=== PATIENT | female | born 1990 | race Caucasian/White ===

== ENCOUNTER 2016-05-23 11:21 | Outpatient (CLI) | payer OTHER ==
[~2016-05-23 11:21] MED LIST: ALBUTEROL HFA60 DOSE IN; INDERAL EQUIVAL20 MG PO; LEVOTHYROXINE112 MCG PO; LUNESTA1 MG PO; XANAX0.25 MG PO; trintellix PO
== END 2016-05-23 23:00 ==
LOC: LAB SRH 11:21
DX: N93.9 Abnormal uterine and vaginal bleeding, unspecified (principal)
CPT/HCPCS: 90001; 90047; 90074; 90155; 90364; 91004; 92863; 95059; 98428

== ENCOUNTER 2016-05-25 05:44 | Day surgery (SDC) | payer OTHER ==
--- NOTE | 2016-05-20 20:00 | HISTORY AND PHYSICAL ---
ADMITTED: 05/25/2016 CHIEF COMPLAINT: 1. Pelvic pain 2. Abnormal endometrium HISTORY OF PRESENT ILLNESS: This patient was seen for her annual on 04/01/2016. She reported at that time that she had her last Depo-Provera the previous March and had chosen not to have more because of a 45 pound weight gain while using that method. Her period started in 08/2015, but were irregular. At the time of her annual she had been bleeding for 5 weeks with varied flow, sometimes heavy, requiring a change of pad and tampon every 1 hour for up to 3 weeks. She had a history of a thickened endometrium in 2011. She also complained of fatigue. An ultrasound was done 04/14/2016 measuring the uterus at 7.9 cm, anteverted. The myometrium contained multiple cystic and hypoechoic areas within the endometrium, by the endometrial borders, that they felt could represent adenomyosis. The endometrium itself measured 11.9 mm, both ovaries were normal. Options for further evaluation of her pain and the abnormal endometrium were discussed with her. She has chosen to schedule for a hysteroscopy, D&C to evaluate the endometrium and see if that helps with the pain. She does not want to have a diagnostic laparoscopy at this point, but may consider it in the future if she continues to have pain. Other options were discussed with her as well, along with the risks and benefits of each choice. Surgical risks have been reviewed with her including infection, bleeding , damage to her structures, anesthesia, and the possibility of further surgery at the time or in the future. Informed consent has been signed. MEDICAL/SURGICAL HISTORY: Menstrual history: Includes menarche at age 13, LMP and ongoing currently. Obstetrical history: Includes 2 vaginal deliveries in 2010 and 2012. Past surgical history: Hysteroscopy, D&C, polypectomy in 2013. 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 MEDICATIONS: 1. Brintellix 20 mg daily for depression. 2. Levothyroxine 112 mcg daily. 3. Lunesta 2 mg at bedtime. 4. Propranolol 10 mg p.r.n. anxiety. 5. Alprazolam ER 1 mg daily. 6. Albuterol inhaler p.r.n. use. ALLERGIES: 1. MORPHINE. 2. LAMICTAL. SOCIAL HISTORY: She is , G2, P2. Denies tobacco and drug use. Reports occasional alcohol intake. FAMILY HISTORY: Her parents and siblings are alive. Her brother, father, and paternal grandfather have hypertension. Her father and paternal grandmother have diabetes. Her maternal great aunt had cancer. REVIEW OF SYSTEMS: She denies headache, ear pain, throat pain, chest pain, shortness of breath, digestive disorders and joint and extremity problems. PHYSICAL EXAMINATION: VITAL SIGNS: She is 5 foot 4 inches, weighs 222. Blood pressure 110/70, pulse 72 , temperature 97.7. GENERAL: She is an overweight female, alert and oriented. HEENT: Within normal limits. HEART: Normal. LUNGS: Normal. ABDOMEN: Full, soft. EXTREMITIES: No clubbing, cyanosis, or edema. IMPRESSION: 1. Abnormal uterine bleeding. 2. Pelvic pain. PLAN: Hysteroscopy, dilatation and curettage, scheduled for 05/25/2016. Informed consent has been signed.
--- NOTE | 2016-05-25 06:39 | NUR ---
PRE OP INSTRUCTIONS GIVEN AND SAFETY ISSUES DISCUSSED PT AND S/O HAD QUESTIONS ANSWERED PT CONFIRMED PROCEDURE PT VERIFIED SIGNATURE
--- NOTE | 2016-05-25 08:59 | NUR ---
PT RECEIVED TO PACU SEDATED, NOT YET RESPONDING TO VOICE. LMA IN PLACE. PT TACHYCARDIC ON ARRIVAL AND ANESTHESIA PROVIDER IS AWARE. LMA REMOVED AT 0849. PT AROUSABLE TO VOICE. VSS, BUT HR REMAINS HIGH, RATE DECREASING SLOWLY. GIVING FLUID BOLUS.
[2016-05-25] MEDS ORDERED: IBUPROFEN400 MG PO (09:03)
[2016-05-25] MEDS ORDERED: VICODIN EQUIVAL1 TAB PO (09:03)
--- NOTE | 2016-05-25 09:05 | Provider's Discharge Care Plan ---
Problem, Goal, Plan Problem List 1. Post-op pain Goals: Improve function Instructions: Follow up as directed
--- NOTE | 2016-05-25 09:05 | Provider's Discharge Care Plan ---
Problem, Goal, Plan Problem List 1. Post-op pain Goals: Improve function Instructions: Follow up as directed
--- NOTE | 2016-05-25 09:14 | NUR ---
PT REMAINS SEDATED, BUT AROUSABLE TO VOICE. HR 105-115 AFTER FLUID BOLUS. VSS.
--- NOTE | 2016-05-25 09:34 | NUR ---
PT MORE EASILY AROUSABLE NOW AND CONVERSING. PAIN LEVEL RATED 2-3/10 AFTER FENTANYL 25 MCG IV AND TORADOL IV. NO NAUSEA.
--- NOTE | 2016-05-25 09:47 | NUR ---
PT AWAKE AND COMFORTABLE. DR EVANS SPOKE WITH PT IN PACU REGARDING SURGICAL FINDINGS AND FOLLOW-UP CARE. QUESTIONS ANSWERED. VSS.
--- NOTE | 2016-05-25 09:55 | OPERATIVE REPORT ---
DATE OF SURGERY: 05/25/2016 SURGEON: Matilda Mccabe DO PREOPERATIVE DIAGNOSES: 1. Abnormal uterine bleeding 2. Pelvic pain POSTOPERATIVE DIAGNOSES: 1. Abnormal uterine bleeding 2. Pelvic pain 3. Polyps PROCEDURES PERFORMED: 1. Hysterectomy 2. Dilatation and curettage 3. Polypectomy ANESTHESIA: LMA. COMPLICATIONS: None. CONDITION: Stable. ESTIMATED BLOOD LOSS: Minimal. FLUIDS: 500 mL of lactated Ringer. Blood administered: None. DRAINS: 0. URINE OUTPUT: 25 mL preoperatively. PATHOLOGY SPECIMEN: Endometrial polyps, endocervical curettings, endometrial curettings. IMPLANTS/GRAFTS: None. SURGICAL FINDINGS: Uterus sounded to 10 cm, retroverted. Polyps in the endometrial cavity removed with polyp forceps. SURGICAL TECHNIQUE: The patient was taken to the operating room where her anesthesia was obtained. She was prepped and draped in the normal sterile fashion in the lithotomy position. A pelvic exam under anesthesia was limited by body habitus, but no abnormalities were noted. A sterile speculum was placed and the anterior cervical lip was grasped with a single-toothed tenaculum. The cervix was circumferentially injected with 0.5% Marcaine with epinephrine using 10 mL and was then serially dilated to a #8 -Tamazight dilator. The uterus was noted to be retroverted. The uterus was then sounded to 10 cm and the hysteroscope was advanced into the external os. There was some prominent rugae in the lower cervical canal, and as expected, this cleared in the upper canal. On entry above the internal os, there was one prominent polyp visible that appeared to be attached to the upper fundal area. There were other smaller appearing polyps as well as some endometrium that had been raised by the dilators. The scope was removed and polyp forceps were used to remove the polyps. The scope was repositioned and there were some remaining polyps, and once again, the polyp forceps were used. On repositioning of the camera, it was noted that the polyps had been removed adequately. Both ostia were seen. The scope was removed and endocervical curettings were obtained followed by endometrial curettings. The tenaculum was then removed and a small amount of bleeding resolved with direct pressure. The speculum was then removed as well. The patient was awakened from her anesthesia and taken to the recovery room in stable condition.
--- NOTE | 2016-05-25 10:02 | NUR ---
PT RETURNED FROM PACU STATED CRAMPING LESS JUST SLEEPY
--- NOTE | 2016-05-25 11:10 | NUR ---
PT UP TO BR VOIDED SPONTANOUSLY ASKING TO GO HOME REVIEWED DISCHARGE INSRUCTIONS VERBAL AND WRITTEN PT EXPRESSED UNDERSTANDING PT DISCHARGED PER WC ACCOMPANIED BY S/O
== END 2016-05-25 11:12 | disposition home or self-care (01) ==
LOC: OR SRH 05:44 → SCU SRH 06:44
PROVIDERS: Obstetrics & Gynecology
PROC: 0UDB8ZX Extraction of Endometrium, Via Natural or Artificial Opening Endoscopic, Diagnostic (ICD-10-PCS; principal; 2016-05-25 07:30)
PROC: 0UB98ZX Excision of Uterus, Via Natural or Artificial Opening Endoscopic, Diagnostic (ICD-10-PCS; principal; 2016-05-25 07:30)
DX: N93.9 Abnormal uterine and vaginal bleeding, unspecified (principal); R10.2 Pelvic and perineal pain; N84.0 Polyp of corpus uteri; J45.909 Unspecified asthma, uncomplicated
CPT/HCPCS: 29229; 29240; 50004; 60001; 70002; 80212; 80575; 83526; 83773

== ENCOUNTER 2016-08-24 09:50 | Outpatient (CLI) | payer OTHER ==
[~2016-08-24 09:50] MED LIST changes: +IBUPROFEN400 MG PO; +VICODIN EQUIVAL1 TAB PO
== END 2016-08-24 23:00 ==
LOC: LAB SRH 09:50
DX: N80.0 Endometriosis of uterus (principal)

== ENCOUNTER 2016-08-26 09:45 | Observation (INO) | payer OTHER ==
[~2016-08-26] VITALS: Ht 162.6 cm; Wt 102.7 kg
--- NOTE | 2016-08-26 10:12 | NUR ---
PRE OP INSTRUCTIONS GIVEN AND SAFETY ISSUES DISCUSSED PT AND SISTER IN LAW HAD QUESTIONS ANSWERED PT CONFIRMED PROCEDURE PT VERIFIED SIGNATURE BREATHING RX GIVEN
--- NOTE | 2016-08-26 11:57 | NUR ---
PT INTERVIEWED IN [facility], CONIRMS PROCEDURE, HYSTERECTOMY, SALPINGECTOMY-- OVARIES WILL STAY. WAS NOT ASKED TO USE SPECIAL SOAP OR WIPE PREOP. ALLERGIES NOTED, HAS GLASSES ON, VOIDED ABOUT 1 HOUR AGO-- PT INFORMED ABOUT CATHETER INTEROP. ANTIBIOTIC NOTED, REPORT TO COMMUNICATIONS DESIGNER IN ROOM. DLS
--- NOTE | 2016-08-26 15:28 | Postoperative Progress Note ---
Postop Progress Note Preoperate Diagnosis: Abnormal uterine bleeding Postoperative Diagnosis: Abnormal uterine bleeding Surgeon: Liz Wallaec MD Dye Room Helper Surgeon: Reese Mirza MD Anesthesia: General ETT Findings: Globular uterus that sounded to 9cm, normal ovaries and fallopian tubes Procedure: Total laparoscopic hysterectomy, bilateral salpingectomy Complications? No Condition: Stable EBL: 300 Fluid(s): 1500 Blood Administered: no Specimen(s) removed? Yes Specimen removed/disposition: Uterus, fallopian tubes Grafts or Implants? No . (See nursing notes for details of grafts/implants)
--- NOTE | 2016-08-26 15:30 | Operative Report ---
Operative Report Date of Surgery: 08/26/2016 Preoperate Diagnosis: Abnormal uterine bleeding Postoperative Diagnosis: Abnormal uterine bleeding Surgeon: Liz Wallace MD Medical Staffing Coordinator Surgeon: Reese Mirza MD Procedure Performed: Total laparoscopic hysterectomy, bilateral salpingectomy Anesthesia: General endotracheal Indications: 26 yo with complaint of abnormal uterine bleeding with ultrasound evidence for adenomyosis. Allergic to oral contraceptive pills and does not desire IUD. Surgical Technique: The patient was taken back to the operating room and placed under general anesthesia without difficulty. She was then placed in the lithotomy position using yellowfin stirrups. Her abdomen and vagina were prepped and draped in the normal sterile fashion a timeout was performed. A Foster catheter was placed into the bladder. A weighted speculum was placed in the posterior aspect of the vagina and a [place] was used in the anterior vagina to visualize the cervix. The cervix was grasped with a single-tooth tenaculum. The 12 and 6:00 positions on the cervix were then tagged with 0 Polysorb suture. The uterus was sounded to 9 cm. The Wanda 2 device with 3.0 cup and 8 cm tip was then placed on the uterus. I changed gloves and moved to work at the abdomen. A 10 mm infraumbilical incision was made with a knife. A Veress needle was then used to enter the abdominal cavity, and insufflation was started. Opening pressure was less than 10 mmHg, so I was assured that we were in the abdomen. The abdomen was insufflated up to 15 mmHg. At that time the Veress needle was removed and a 10 mm port and trocar were placed in the infraumbilical incision under direct visualization with the 10 mm scope camera. A 10 mm port was placed in the left lower quadrant under direct visualization, followed by 5 mm port in the right lower quadrant. At that time the left fallopian tube was grasped at the fimbria and the Thunderbeat device was used to cauterize the mesosalpinx under the fallopian tube up to the level of the cornual of the uterus. The utero-ovarian ligament was also cauterized and cut, followed by the round ligament. The broad ligament was then cauterized and cut down to the level of the uterine artery. The uterine artery was cauterized and then cut. This was repeated on the right side. At this time the vesicouterine peritoneum was taken down and the bladder flap created. We then used a combination of the Thunderbeat and hook cautery to perform the colpotomy. The uterus was then removed from the vagina with the fallopian tubes still attached. This was sent as one specimen to pathology. A surgical lap was placed in a sterile glove and this was placed inside the vagina to maintain pneumoperitoneum. At this time the pelvis was irrigated with saline and cleared of all clot and debris. The colpotomy site was then brought together using a 0 Polysorb. Figure of 8 stitches were placed at each apex, followed by an additional [id number] stitch in the middle. The area was then irrigated again and there was excellent hemostasis. The Arcenio-Leonel device was then used to close the fascia of both 10 mm sites. Insufflation was then removed from the abdomen and skin at all 3 sites were closed using 4-0 Polysorb. These were then covered with Steri-Strips. The glove with lap was then removed from the vagina. The patient was then awoken from general anesthesia and taken to the PACU in stable condition. All sponge lap and needle counts were correct x2.
--- NOTE | 2016-08-26 16:14 | NUR ---
PT IS AWAKE AND ALERT.PT DENEIS NAUSEA.PT STATES THAT HER ABDOMINAL PAIN IS 2/10. PT IS RESTING COMFORTABLY ON STRECHER. VSS. ABDOMEN IS SOFT. DRESSINGS ARE CLEAN AND DRY.
[2016-08-26 17:08] VITALS: BP 122/82
[2016-08-26 18:00] VITALS: BP 122/82
[2016-08-26 19:37] VITALS: BP 131/76
[2016-08-26 20:30] VITALS: BP 132/72
--- NOTE | 2016-08-26 21:17 | NUR ---
fernandes catheter removed
--- NOTE | 2016-08-27 00:23 | NUR ---
PT FROM PACU TO ROOM 211 AROUND 1700 VIA STRETCHER AND CONVEYOR MECHANIC. REPORT RECEVIED FROM GUILLAUME BRENNAN. PT DROWSY BUT CONVERSING AND ORIENTEDX4. EASILY AROUSABLE. ABLE TO STAND AND PIVOT TO BED. AT BEDSIDE. PT C/O NAUSEA, O2 AT 4L PLACED AND QUEAZIES GIVEN. DR. FORBES CALLED FOR ANTIEMETIC ORDERS. ZOFRAN GIVEN AND EFFECTIVE. O2 STOPPED AT 2200. PAIN CONTROLLED WITH VICODIN AND VISTARIL. PT HAS BEEN TACHY UP TO 120 THIS SHIFT BUT DENIES PALPITATION OR SOB. VOIDED 350 AFTER MARQUIS REMOVAL. UP AMBULATING IN ROOM TOLERATING IT WELL. ENCOURAGED PT TO AMBULATE MORE FREQUENTLY. PT CALM AND COOPERATIVE. CALLING APPOPRIATELY. TOLERATED ONE JELLO THIS SHIFT WITH ICE WATER. SUNITHA.
--- NOTE | 2016-08-27 00:37 | NUR ---
AMBULATING FROM TOILET, REQUESTED PAIN MEDS FOR 5/10 SURGICAL INCISIONAL PAIN. DENIES BURPING/FLATUS. ENCOURAGED AMBULATION. DENIES NAUSEA AT THIS TIME.
[2016-08-27 00:39] VITALS: BP 122/65
[2016-08-27 04:32] VITALS: BP 124/70
[2016-08-27 07:29] VITALS: BP 109/65
--- NOTE | 2016-08-27 10:34 | Progress Note ---
Subjective General Feeling well. Pain controlled with PO pain meds. Nausea improved and tolerating PO food. Ambulating without difficulty. Voiding without difficulty. Constitutional Denies: Fever, Chills, Sweats, Weakness. Respiratory Denies: Cough. Cardiovascular Denies: Chest Pain. Gastrointestinal Abdominal Pain. Denies: Nausea, Vomiting. Genitourinary Denies: Dysuria, Frequency, Incontinence, Retention. Physical Exam Vital Signs / I&Os Vital Signs Date Time Temp Pulse Resp B/P Pulse O2 O2 Flow FiO2 Ox Delivery Rate 08/27 0807 Room Air 08/27 0729 97.9 104 17 109/65 97 Room Air 4.0 08/27 0432 98.2 98 20 124/70 97 Room Air 08/27 0039 98.2 117 20 122/65 96 Room Air 08/26 2030 117 18 132/72 99 Nasal 4.0 Cannula 08/26 1937 108 18 131/76 98 Nasal 4.0 Cannula 08/26 1800 103 18 122/82 100 Nasal 4.0 Cannula 08/26 1708 98.2 97 18 122/82 100 Nasal 4.0 Cannula 08/26 1647 97.9 100 21 132/78 100 05/11 1640 92 18 124/76 100 Nasal 3.0 Cannula / 1630 94 15 121/78 100 Nasal 3.0 Cannula / 1620 109 18 124/75 99 Nasal 3.0 Cannula 05/11 1610 95 23 128/73 99 Nasal 3.0 Cannula /11 1600 100 18 116/79 99 Nasal 3.0 Cannula 05/ 1555 94 20 117/74 99 Nasal 3.0 Cannula / 1550 101 22 112/74 99 Nasal 3.0 Cannula 05/11 1545 91 22 122/70 99 Nasal 3.0 Cannula 05/11 1540 104 23 135/78 99 Nasal 3.0 Cannula 05/11 1535 94 21 137/68 99 Mask 10.0 08/26 1530 98.2 107 11 100 Mask 10.0 I&O 08/27 0000 11 1600 08/26 0800 Intake Total 500 1900 Output Total 650 500 Balance -150 1400 General Appearance Alert, Oriented X3, Cooperative, No acute distress HEENT Normal exam Abdomen Normal bowel sounds, Soft, appropriate tenderness Extremities Normal exam Assessment and Plan Problem List 1. Post-operative state Plan Routine post op care. D/C with Rx for pain meds f/u in 2 weeks 2. Post-op pain Plan Continue pain meds prn
[2016-08-27] MEDS ORDERED: NORCO1 TA1 PO (10:38)
[2016-08-27] MEDS ORDERED: IBUPROFEN600 MG PO (10:39)
--- NOTE | 2016-08-27 10:40 | Provider's Discharge Care Plan ---
Problem, Goal, Plan Problem List 1. Post-operative state Goals: Improve function, Increase independence, No readmissions Instructions: Follow up as directed, Increase activity level, Take meds as directed
--- NOTE | 2016-08-27 10:59 | NUR ---
EATING, AMBULATING AND VOIDING WITHOUT PROBLEM. D/C INSTRUCTIONS GONE OVER WITH AND ESCORTED OUT IN W/C WITH , WHO WILL DRIVE HER HOME.
== END 2016-08-27 11:00 | disposition home or self-care (01) ==
LOC: OR SRH 09:45 → SCU SRH 09:46 → OR SRH 11:45 → ACUTE2 SRH 15:24
PROVIDERS: ADMIT Obstetrics & Gynecology
PROC: 0UT74ZZ Resection of Bilateral Fallopian Tubes, Percutaneous Endoscopic Approach (ICD-10-PCS; principal; 2016-08-26 11:45)
PROC: 0UT94ZZ Resection of Uterus, Percutaneous Endoscopic Approach (ICD-10-PCS; principal; 2016-08-26 11:45)
PROC: 0UTC4ZZ Resection of Cervix, Percutaneous Endoscopic Approach (ICD-10-PCS; principal; 2016-08-26 11:45)
DX: N93.9 Abnormal uterine and vaginal bleeding, unspecified (principal); N80.0 Endometriosis of uterus; Z88.8 Allergy status to other drugs, medicaments and biological substances; E03.9 Hypothyroidism, unspecified; J45.909 Unspecified asthma, uncomplicated; F32.9 Major depressive disorder, single episode, unspecified; F41.9 Anxiety disorder, unspecified
CPT/HCPCS: 29229; 29230; 50002; 60001; 70002; 80102; 80212; 80248; 82669; 82794; 82897; 83475; 83587; 83919; 84038; 90001; 90047; 90074; 90155; 90364; 91004; 91162; 91163; 92863; 95059; 98428